=== PATIENT | male | born 1960 | race African-American/Black ===

== ENCOUNTER 2017-11-06 19:25 | Inpatient (IN) | payer OTHER ==
[2017-11-06 19:59] VITALS: BMI 30.1
--- NOTE | 2017-11-06 20:27 | HP ---
COWS - Scale Resting Pulse: 0= [place] 80 or Below Sweatin=Flushed/Facial Moisture Restless Observation: 1= Difficult to Sit Still Pupil Size: 1= Pupils >than Normal Bone or Joint Aches: 1= Mild Discomfort Runny Nose/ Eye Tearin= Runny Nose/Eyes GI Upset > 30mins: 2= Nausea/Diarrhea Tremor Observation: 1= Tremor [place], Not Seen Yawning Observation: 4= Several Times/Minute Anxiety or Irritability: 2=Irritable/Anxious Goose Flesh Skin: 0=Smooth Skin COWS Score: 16 CIWA Score - CIWA Score Nausea/Vomitin Muscle Tremors: 2 Anxiety: 3 Agitation: 2 Paroxysmal Sweats: 3 Orientation: 0-Oriented Tacttile Disturbances: 0-None Auditory Disturbances: 0-None Visual Disturbances: 2-Mild Sensitivity Headache: 0-None Present CIWA-Ar Total Score: 14 Admission ROS S - HPI Chief Complaint: heroin and alcohol withdrawal symptoms Allergies/Adverse Reactions: Allergies Allergy/AdvReac Type Severity Reaction Status Date / Time No Known Allergies Allergy Verified 02/28/16 13:56 History of Present Illness: 57 yo male with hx of nicotine, IV heroin, crack / cocaine dependence is here seeking detox. Denies suicidal / homicidal ideation. Last detox [facility] 03/27/16 - 03/04/16. Exam Limitations: No Limitations - Ebola screening Have you traveled outside of the country in the last 21 days: No Have you had contact with anyone from an Ebola affected area: No Have you been sick,other than usual withdrawal symptoms: No Do you have a fever: No - Review of Systems Constitutional: Chills, Diaphoresis, Loss of Appetite, Changes in sleep, Weakness EENT: reports: No Symptoms Reported Respiratory: reports: No Symptoms reported GI: reports: Constipated (last BM yesterday), Nausea, Poor Appetite, Poor Fluid Intake : reports: No Symptoms Reported Musculoskeletal: reports: Back Pain, Joint Pain Integumentary: reports: No Symptoms Reported Neuro: reports: Weakness Hematology: reports: No Symptoms Reported Psychiatric: reports: Orientated x3, Agitated Other Systems: Reviewed and Negative Patient History - Patient Medical History Hx Anemia: No Hx Asthma: No Hx Chronic Obstructive Pulmonary Disease (COPD): No Hx Cancer: No Hx Cardiac Disorders: No Hx Congestive Heart Failure: No Hx Hypertension: No Hx Hypercholesterolemia: No Hx Pacemaker: No HX Cerebrovascular Accident: No Hx Seizures: No Hx Dementia: No Hx Diabetes: No Hx Gastrointestinal Disorders: No Hx Liver Disease: No Hx Genitourinary Disorders: No Hx Sexually Transmitted Disorders: No Hx Renal Disease (ESRD): No Hx Thyroid Disease: No Hx Human Immunodeficiency Virus (HIV): No (declines testing today ) Hx Hepatitis C: No Hx Depression: Yes Hx Suicide Attempt: No Hx Bipolar Disorder: No Hx Schizophrenia: No - Patient Surgical History Past Surgical History: Yes Hx Abdominal Surgery: Yes (hernia repair umbilical ) - PPD History Previous Implant?: No Documented Results: Negative w/o proof PPD to be Administered?: Yes - Smoking Cessation Smoking history: Current every day smoker Have you smoked in the past 12 months: Yes Aproximately how many cigarettes per day: 20 Cigars Per Day: 0 Hx Chewing Tobacco Use: No Initiated information on smoking cessation: Yes 'Breaking Loose' booklet given: 11/06/17 - Substance & Tx. History Hx Alcohol Use: Yes Hx Substance Use: Yes Substance Use Type: Alcohol, Cocaine, Heroin Hx Substance Use Treatment: Yes ([facility] 02/28/16 -03/04/16) - Substances Abused Heroin Route: Injection Frequency: Daily Amount used: 25 Age of first use: 17 Date of Last Use: 11/06/17 Alcohol Route: Oral Frequency: 3-6 times per week Amount used: 1 pint vodka Age of first use: 17 Date of Last Use: 11/06/17 Crack Route: Smoking Frequency: Daily Amount used: 1 gram Age of first use: 17 Date of Last Use: 11/06/17 Family Disease History - Family Disease History Family History: Unable to Obtain Admission Physical Exam [facility] - Vital Signs Vital Signs: Vital Signs - 24 hr 11/06/17 19:57 Temperature 97.2 F L Pulse Rate 62 Respiratory 21 Rate Blood Pressure 155/77 - Physical General Appearance: Yes: Disheveled, Moderate Distress, Irritable, Anxious HEENTM: Yes: EOMI, Hearing grossly Normal, Normal ENT Inspection, Normocephalic , Normal Voice, TOM, Pharynx Normal, Tm's normal Respiratory: Yes: Chest Non-Tender, Lungs Clear, Normal Breath Sounds, No Respiratory Distress, No Accessory Muscle Use Neck: Yes: No masses,lesions,Nodules, Trachea in good position Breast: Yes: Breast Exam Deferred Cardiology: Yes: Within Normal Limits Abdominal: Yes: Normal Bowel Sounds, Non Tender, Soft, Protuberent Genitourinary: Yes: Within Normal Limits Musculoskeletal: Yes: full range of Motion, Gait Steady, Pelvis Stable, Back pain, Muscle Pain (left lower extremity) Extremities: Yes: Normal Capillary Refill, Normal Inspection, Normal Range of Motion, Non-Tender Neurological: Yes: hall cleaner II-XII NML intact, Motor Strength 5/5, Depressed Affect Integumentary: Yes: Normal Color, Warm, Diaphoresis Lymphatic: Yes: Within Normal Limits - Diagnostic (1) Alcohol dependence with withdrawal Current Visit: Yes Status: Acute Qualifiers: Complication of substance-induced condition: uncomplicated Qualified Code(s ): F10.230 - Alcohol dependence with withdrawal, uncomplicated (2) Nausea and vomiting Current Visit: Yes Status: Acute Qualifiers: Vomiting Intractability: unspecified (3) Cocaine dependence, uncomplicated Current Visit: Yes Status: Acute (4) Nicotine dependence Current Visit: Yes Status: Chronic Qualifiers: Nicotine product type: cigarettes Substance use status: uncomplicated Qualified Code(s): F17.210 - Nicotine dependence, cigarettes, uncomplicated (5) Opioid dependence with withdrawal Current Visit: Yes Status: Acute (6) IV drug user Current Visit: Yes Status: Acute (7) Elevated blood pressure reading in office without diagnosis of hypertension Current Visit: Yes Status: Acute Cleared for Admission [facility] - Detox or Rehab [facility] Level of Care: Medically Managed Detox Regimen/Protocol: Methadone/Librium [facility] Breath Alcohol Content Breath Alcohol Content: 0.027 Urine Drug Screen - Results Drug Screen Negative: No Urine Drug Screen Results: SHYLA-Cocaine, OPI-Opiates
[2017-11-06] MEDS ORDERED: hydrOXYzine PAMOATE 50 MG CAPSULE (FP) PO PRN (20:33)
[2017-11-06] MEDS ORDERED: guaiFENesin/D-METHORPHAN HB 10 ML UNIT-DOSE CUPS PO PRN (20:33)
[2017-11-06] MEDS ORDERED: MAGNESIUM CITRATE 300 ML BOTTLE PO PRN (20:33)
[2017-11-06] MEDS ORDERED: ACETAMINOPHEN 325 MG TABLET (FP) PO PRN (20:33)
[2017-11-06] MEDS ORDERED: P-EPHED 60MG/TRIPROLIDI 2.5MG TABLET PO PRN (20:33)
[2017-11-06] MEDS ORDERED: MAGNESIUM HYDROX 2400MG/30ML ORAL SUSPENSION 30 ML CUP PO PRN (20:33)
[2017-11-06] MEDS ORDERED: NICOTINE POLACRILEX 2 MG GUM BC PRN (20:33)
[2017-11-06] MEDS ORDERED: chlordiazePOXIDE HCL 25 MG CAPSULE PO PRN (20:33)
[2017-11-06] MEDS ORDERED: IBUPROFEN 400 MG TABLET (FP) PO PRN (20:33)
[2017-11-06] MEDS ORDERED: MENTHOL/PHENOL 1 EACH UD MM PRN (20:33)
[2017-11-06] MEDS ORDERED: MAG HYDROX/AL HYDROX/SIMETH 30 ML UNIT-DOSE CUP PO PRN (20:33)
[2017-11-06] MEDS ORDERED: LOPERAMIDE HCL 2 MG CAPSULE PO PRN (20:33)
[2017-11-06] MEDS ORDERED: ONDANSETRON *ODT* 4 MG TABLET SL PRN (20:44)
[2017-11-06] MEDS ORDERED: METHADONE HCL 10 MG TABLET (FOR DETOX USE ONLY) PO ONE ×2 (21:30→23:00)
[2017-11-06] MEDS ORDERED: chlordiazePOXIDE HCL 25 MG CAPSULE PO ONE (21:30)
[2017-11-06] MEDS: THIAMINE HCL 100 MG TABLET (FP) PO SCH (21:53)
[2017-11-06] MEDS: chlordiazePOXIDE HCL 25 MG CAPSULE PO SCH (23:17)
[2017-11-07] MEDS: chlordiazePOXIDE HCL 25 MG CAPSULE PO SCH ×4 (06:42→22:38)
[2017-11-07] MEDS ORDERED: TRIMETHOBENZAMIDE HCL 200MG/2ML INJ IM ONE (08:40)
[2017-11-07] MEDS ORDERED: METHADONE DETOX 10 MG/1 ML [20ML VIAL] IM ONE (09:17)
--- NOTE | 2017-11-07 09:39 | EKG ---
Test Reason : Blood Pressure : / mmHG Vent. Rate : 062 BPM Atrial Rate : 062 BPM P-R Int : 190 ms QRS Dur : 084 ms QT Int : 428 ms P-R-T Axes : 051 047 024 degrees QTc Int : 434 ms NORMAL SINUS RHYTHM POSSIBLE LEFT ATRIAL ENLARGEMENT NONSPECIFIC T WAVE ABNORMALITY ABNORMAL ECG NO PREVIOUS ECGS AVAILABLE Confirmed by BECK BRYAN MD ([id number]) on 11/07/2017 9:38:51 AM Referred By: Confirmed By:BECK BRYAN MD
[2017-11-07] MEDS ORDERED: METHADONE HCL 10 MG TABLET (FOR DETOX USE ONLY) PO SCH (10:00)
[2017-11-07 10:03] LABS: HEMATOCRIT 38.1 % (35.4-49); HEMOGLOBIN 12.3 GM/dL (11.7-16.9); MCHC 32.2 g/dl (32.0-35.9); MEAN CELL VOLUME 74.5 fl (80-96); MEAN PLT VOLUME 8.2 fl (7.5-11.1); PLATELET COUNT 316 K/MM3 (134-434); RBC 5.12 M/mm3 (4.00-5.60); RDW 16.1 % (11.9-15.9); WHITE BLOOD COUNT 7.1 K/mm3 (4.0-10.0)
[2017-11-07 10:17] LABS: CHLORIDE 104 mmol/L (98-107); POTASSIUM 4.5 mmol/L (3.5-5.1); SODIUM 137 mmol/L (136-145)
[2017-11-07] MEDS: PRENATAL VITAMINS W/ FOLIC ACID TABLET (FP) PO SCH (10:41)
[2017-11-07] MEDS: NICOTINE 14 MG/24 HOURS TOPICAL PATCH TD SCH (10:41)
--- NOTE | 2017-11-07 11:17 | PN ---
[facility] CIWA - CIWA Score Nausea/Vomitin-No Nausea/No Vomiting Muscle Tremors: 4-Moderate,w/Arms Extend Anxiety: 4-Mod. Anxious/Guarded Agitation: 4-Moderately Restless Paroxysmal Sweats: 1-Minimal Palms Moist Orientation: 0-Oriented Tacttile Disturbances: 3-Moderate Itch/Numb/Burn Auditory Disturbances: 0-None Visual Disturbances: 0-None Headache: 0-None Present CIWA-Ar Total Score: 16 S COWS - Scale Resting Pulse: 0= [place] 80 or Below Sweatin= Chills/Flushing Restless Observation: 3= Extraneous Movement Pupil Size: 2= Moderately Dilated Bone or Joint Aches: 4=Acute Joint/Muscle Pain Runny Nose/ Eye Tearin= Nasal Congestion GI Upset > 30mins: 5=Frequent Vomit/Diarrhea Tremor Observation of Outstretched Hands: 1= Tremor [place], Not Seen Yawning Observation: 1= 1-2x During Session Anxiety or Irritability: 2=Irritable/Anxious Goose Flesh Skin: 0=Smooth Skin COWS Score: 20 [facility] Progress Note (SOAP) Subjective: SEVERE WITHDRAWAL SX-NAUSEA,VOMITING-YELLOW TINGED LIQUID,WRETCHING,IRRITABILITY , HOT AND COLD CHILLS,ANXIETY,INTERMITTENT SLEEP. Objective: 11/07/17 11:15 Vital Signs 11/07/17 11/07/17 11/07/17 03:30 06:43 09:26 Temperature 97.4 F L 96.7 F L Pulse Rate 52 L 48 L Respiratory 18 20 18 Rate Blood Pressure 155/75 157/81 Laboratory Tests 11/07/17 06:40 WBC 7.1 RBC 5.12 Hgb 12.3 Hct 38.1 MCV 74.5 L MCH 24.0 L MCHC 32.2 RDW 16.1 H Plt Count 316 MPV 8.2 OTHER LABS PENDING Assessment: 11/07/17 11:15 WITHDRAWAL SX Plan: CONTINUE DETOX TIGAN 200 MG IM X 1 GIVEN METHADONE 10 MG IM X 1 ORDERED.
[2017-11-07] MEDS ORDERED: cloNIDine HCL 0.1 MG TABLET PO ONE (11:22)
[2017-11-07 11:23] LABS: ALBUMIN 3.5 g/dl (3.4-5.0); ALK PHOS 98 U/L (45-117); ANION GAP 12 (8-16); BILIRUBIN,TOTAL 0.8 mg/dL (0.2-1.0); BLOOD UREA NITROGEN 11 mg/dL (7-18); CALCIUM 9.2 mg/dL (8.5-10.1); CO2 21 mmol/L (21-32); GLUCOSE,RANDOM 106 mg/dL (74-106); SGOT/AST 18 U/L (15-37); SGPT/ALT 16 U/L (12-78); TOT PROT 8.5 g/dl (6.4-8.2)
--- NOTE | 2017-11-07 15:10 | CONSULT ---
[facility] Psychiatric Consult - Data Date of interview: 11/07/17 Admission source: [facility] Identifying data: Readmission to [facility] for this 57 y/o AA male seeking detox treatment on for heroin and cocaine (crack) dependence.Patient is single,a father of five,domiciled,unemployed and supported on SSI benefits. Substance Abuse History: Confirmed by patient in this interview.Details in current [facility] report as follows : Smoking history: Current every day smoker. Have you smoked in the past 12 months: Yes. Aproximately how many cigarettes per day: 20. Cigars Per Day: 0. Hx Chewing Tobacco Use: No. Initiated information on smoking cessation: Yes. 'Breaking Loose' booklet given: . - Substance & Tx. History. Hx Alcohol Use: Yes. Hx Substance Use: Yes. Substance Use Type: Alcohol, Cocaine, Heroin. Hx Substance Use Treatment: Yes ( [facility] 02/28/16 -03/04/16). - Substances Abused. Heroin. Route: Injection. Frequency: Daily. Amount used: 25. Age of first use: 17. Date of Last Use: . Alcohol. Route: Oral. Frequency: 3-6 times per week. Amount used : 1 pint vodka. Age of first use: 17. Date of Last Use: 11/06/17. Crack. Route: Smoking. Frequency: Daily. Amount used: 1 gram. Age of first use: 17. Date of Last Use: 11/06/17 Medical History: Remarkable for a history of positive PPD and umbilical herniorraphy. Psychiatric History: Patient admits to a history of multiple psychiatric hospitalizations.Known to [facility].Diagnosed with Bipolar Disorder as per self-report.Lost to psychiatric follow up.Mr Gonzalez states that he has not taken psychotropic medications " for a while " or seen a psychiatrist for many months.Patient denies history of suicide attempts. Physical/Sexual Abuse/Trauma History: No information. Additional Comment: Urine Drug Screen Results: SHYLA-Cocaine, OPI-Opiates.Noted. Mental Status Exam - Mental Status Exam Alert and Oriented to: Time, Place, Person Cognitive Function: Good Patient Appearance: Unkempt, Disheveled Mood: Hostile, Nervous, Withdrawn, Irritable Affect: Mood Congruent Patient Behavior: Fatigued, Uncooperative Speech Pattern: Clear Voice Loudness: Normal Thought Process: Goal Oriented Thought Disorder: Not Present Hallucinations: Denies Suicidal Ideation: Denies Homicidal Ideation: Denies Insight/Judgement: Poor Sleep: Well Appetite: Fair Muscle strength/Tone: Normal Gait/Station: Normal Psychiatric Findings - Problem List ([place] 1, 2,3) (1) Opioid dependence with withdrawal Current Visit: Yes Status: Acute (2) Alcohol dependence with withdrawal Current Visit: Yes Status: Acute Qualifiers: Complication of substance-induced condition: uncomplicated Qualified Code(s ): F10.230 - Alcohol dependence with withdrawal, uncomplicated (3) Cocaine dependence, uncomplicated Current Visit: Yes Status: Acute (4) Nicotine dependence Current Visit: Yes Status: Acute Qualifiers: Nicotine product type: cigarettes Substance use status: in withdrawal Qualified Code(s): F17.213 - Nicotine dependence, cigarettes, with withdrawal (5) Substance induced mood disorder Current Visit: Yes Status: Acute - Initial Treatment Plan Initial Treatment Plan: Psychoeducation.Sleep hygiene.Detoxification.Observation.
[2017-11-07] MEDS: THIAMINE HCL 100 MG TABLET (FP) PO SCH (22:37)
[2017-11-07] MEDS: cloNIDine HCL 0.1 MG TABLET PO SCH (22:38)
[2017-11-08] MEDS: chlordiazePOXIDE HCL 25 MG CAPSULE PO SCH ×3 (05:31→18:00)
[2017-11-08] MEDS ORDERED: TRIMETHOBENZAMIDE HCL 200MG/2ML INJ IM ONE (09:52)
[2017-11-08] MEDS ORDERED: METHADONE DETOX 10 MG/1 ML [20ML VIAL] IM ONE (10:00)
[2017-11-08] MEDS ORDERED: METHADONE HCL 5 MG TABLET (FOR DETOX USE ONLY) PO SCH (10:00)
--- NOTE | 2017-11-08 10:32 | PN ---
S Progress Note (SOAP) Subjective: PT IS A 57 Y/O AA/MALE WHO WAS ADMITTED TO DETOX FOR HEROIN AND ALCOHOL SINCE 05/14 WITH ACUTE WITHDRAWAL SX. PT WAS SEEN THIS MORNING ON ROUNDS IN BED. STILL C/O ABDOMINAL PAIN,UNABLE TO EAT OR DRINK EXCEPT [place], UNRELENTING NAUSEA AND VOMITING X 48 HOURS, WEAKNESS. Objective: 11/08/17 10:32 Vital Signs - 24 hr 11/07/17 11/07/17 11/07/17 14:03 17:07 21:22 Temperature 98.2 F 97.8 F 100.1 F H Pulse Rate 42 L 56 L 51 L Respiratory 18 18 20 Rate Blood Pressure 136/71 144/71 162/83 11/08/17 11/08/17 00:44 09:23 Temperature 97.9 F Pulse Rate 49 L Respiratory 18 18 Rate Blood Pressure 139/74 Laboratory Last Values WBC 7.1 K/mm3 (4.0-10.0) 11/07/17 06:40 RBC 5.12 M/mm3 (4.00-5.60) 11/07/17 06:40 Hgb 12.3 GM/dL (11.7-16.9) 11/07/17 06:40 Hct 38.1 % (35.4-49) 11/07/17 06:40 MCV 74.5 fl (80-96) L 11/07/17 06:40 MCH 24.0 pg (25.7-33.7) L 11/07/17 06:40 MCHC 32.2 g/dl (32.0-35.9) 11/07/17 06:40 RDW 16.1 % (11.9-15.9) H 11/07/17 06:40 Plt Count 316 K/MM3 (134-434) 11/07/17 06:40 MPV 8.2 fl (7.5-11.1) 11/07/17 06:40 Sodium 137 mmol/L (136-145) 11/07/17 06:40 Potassium 4.5 mmol/L (3.5-5.1) 11/07/17 06:40 Chloride 104 mmol/L (98-107) 11/07/17 06:40 Carbon Dioxide 21 mmol/L (21-32) D 11/07/17 06:40 Anion Gap 12 (8-16) 11/07/17 06:40 BUN 11 mg/dL (7-18) D 11/07/17 06:40 Creatinine 1.0 mg/dL (0.7-1.3) 11/07/17 06:40 Creat Clearance w eGFR > 60 (>60) 11/07/17 06:40 Random Glucose 106 mg/dL (74-106) D 11/07/17 06:40 Calcium 9.2 mg/dL (8.5-10.1) 11/07/17 06:40 Total Bilirubin 0.8 mg/dL (0.2-1.0) D 11/07/17 06:40 AST 18 U/L (15-37) D 11/07/17 06:40 ALT 16 U/L (12-78) 11/07/17 06:40 Alkaline Phosphatase 98 U/L (45-117) 11/07/17 06:40 Total Protein 8.5 g/dl (6.4-8.2) H 11/07/17 06:40 Albumin 3.5 g/dl (3.4-5.0) 11/07/17 06:40 RPR Titer Nonreactive (NONREACTIVE) 11/07/17 06:40 PULSE OX: 95% ROOM AIR ABDOMINAL EXAM:BS PRESENT, HYPOACTIVE. SOFT TO PALPATE, NOT DISTENDED. PAIN ON PALPATION AT EPIGASTRIC REGION Assessment: 11/08/17 10:33 WITHDRAWAL SX NAUSEA/VOMITING WITH ABDOMINAL PAIN Plan: CONTINUE DETOX ZANTAC 150 MG PO BID PO FLUIDS TOLERATED TRANSFER TO ER FOR FURTHER EVALUATION AND TREATMENT IF NEEDED.
[2017-11-08] MEDS: PRENATAL VITAMINS W/ FOLIC ACID TABLET (FP) PO SCH (11:12)
[2017-11-08] MEDS: cloNIDine HCL 0.1 MG TABLET PO SCH ×2 (11:12→22:31)
[2017-11-08] MEDS: NICOTINE 14 MG/24 HOURS TOPICAL PATCH TD SCH (11:13)
[2017-11-08] MEDS: RANITIDINE HCL 150 MG TABLET (FP) PO SCH ×2 (11:13→22:31)
--- NOTE | 2017-11-08 17:52 | PN ---
[facility] Progress Note Note: pt was sent to ED this morning for uncontrolled N/V and generalized achy body. Dish Room Worker received call from Dr. Radha Camarena with report that pt is cleared to return back to [facility] to complete his detox. Pt received ekg which shows he has a prolonged QT and MD is requesting no anti- nausea medication to be ordered for this pt. Dr. Camarena will also refer pt to see a grinder operator tool as a follow up after he completes detox. Pt also received a 1x dose clonidine 0.1mg patch for hypertension, Dr. Camarena states it resolved after patch was placed.
[2017-11-08] MEDS: chlordiazePOXIDE 5 MG CAPSULE PO SCH (22:31)
[2017-11-08] MEDS: THIAMINE HCL 100 MG TABLET (FP) PO SCH (22:31)
[2017-11-09] MEDS: chlordiazePOXIDE 5 MG CAPSULE PO SCH ×3 (06:40→17:27)
[2017-11-09] MEDS ORDERED: METHADONE HCL 5 MG TABLET (FOR DETOX USE ONLY) PO SCH (10:00)
[2017-11-09] MEDS: NICOTINE 14 MG/24 HOURS TOPICAL PATCH TD SCH (10:54)
[2017-11-09] MEDS: cloNIDine HCL 0.1 MG TABLET PO SCH ×2 (10:54→22:45)
[2017-11-09] MEDS: RANITIDINE HCL 150 MG TABLET (FP) PO SCH ×2 (10:54→22:46)
[2017-11-09] MEDS: PRENATAL VITAMINS W/ FOLIC ACID TABLET (FP) PO SCH (10:54)
--- NOTE | 2017-11-09 14:51 | PN ---
S CIWA - CIWA Score Nausea/Vomitin Muscle Tremors: 2 Anxiety: 4-Mod. Anxious/Guarded Agitation: 1-Slight > Activity Paroxysmal Sweats: No Perspiration Orientation: 0-Oriented Tacttile Disturbances: 2-Mild Itch/Numbness/Burn Auditory Disturbances: 1-Very Mild Visual Disturbances: 2-Mild Sensitivity Headache: 0-None Present CIWA-Ar Total Score: 14 [facility] COWS - Scale Resting Pulse: 0= [place] 80 or Below Sweatin= No chills or Flushing Restless Observation: 1= Difficult to Sit Still Pupil Size: 0= Normal to Room Light Bone or Joint Aches: 0= None Runny Nose/ Eye Tearin= Nasal Congestion GI Upset > 30mins: 2= Nausea/Diarrhea Tremor Observation of Outstretched Hands: 2= Slight Tremor Visible Yawning Observation: 2= >3x During Session Anxiety or Irritability: 2=Irritable/Anxious Goose Flesh Skin: 3=Piloerection COWS Score: 13 [facility] Progress Note (SOAP) Subjective: Tremors, Fatigue, Nausea, Anxious. Objective: PATIENT A & O X 3. NO ACUTE DISTRESS. 11/09/17 14:49 Vital Signs Temperature 99 F 11/09/17 14:19 Pulse Rate 56 L 11/09/17 14:19 Respiratory Rate 16 11/09/17 14:19 Blood Pressure 121/68 11/09/17 14:19 O2 Sat by Pulse Oximetry (%) Laboratory Tests 11/07/17 11/07/17 11/07/17 06:40 06:40 06:40 WBC 7.1 RBC 5.12 Hgb 12.3 Hct 38.1 MCV 74.5 L MCH 24.0 L MCHC 32.2 RDW 16.1 H Plt Count 316 MPV 8.2 Sodium 137 Potassium 4.5 Chloride 104 Carbon Dioxide 21 D Anion Gap 12 BUN 11 D Creatinine 1.0 Creat Clearance w eGFR > 60 Random Glucose 106 D Calcium 9.2 Total Bilirubin 0.8 D AST 18 D ALT 16 Alkaline Phosphatase 98 Total Protein 8.5 H Albumin 3.5 RPR Titer Nonreactive LABS NOTED. UA RESULTS PENDING. 11/09/17 14:50 Assessment: 11/09/17 14:50 WITHDRAWAL SYMPTOMS. Plan: CONTINUE DETOX.
[2017-11-09] MEDS: THIAMINE HCL 100 MG TABLET (FP) PO SCH (22:45)
[2017-11-09] MEDS: chlordiazePOXIDE HCL 10 MG CAPSULE PO SCH (22:46)
[2017-11-10] MEDS: chlordiazePOXIDE HCL 10 MG CAPSULE PO SCH ×3 (06:44→17:42)
[2017-11-10] MEDS ORDERED: METHADONE HCL 10 MG TABLET (FOR DETOX USE ONLY) PO SCH (10:00)
[2017-11-10] MEDS: cloNIDine HCL 0.1 MG TABLET PO SCH ×2 (10:58→22:25)
[2017-11-10] MEDS: PRENATAL VITAMINS W/ FOLIC ACID TABLET (FP) PO SCH (10:58)
[2017-11-10] MEDS: RANITIDINE HCL 150 MG TABLET (FP) PO SCH ×2 (10:58→22:32)
[2017-11-10] MEDS: NICOTINE 14 MG/24 HOURS TOPICAL PATCH TD SCH (10:59)
--- NOTE | 2017-11-10 16:19 | PN ---
[facility] Progress Note (SOAP) Subjective: Nausea (Improving), Fatigue, Interrupted Sleep, Body Aches. Objective: PATIENT A & O X 3. NO ACUTE DISTRESS. 11/10/17 16:18 Vital Signs Temperature 98.2 F 11/10/17 13:29 Pulse Rate 67 11/10/17 13:29 Respiratory Rate 18 11/10/17 13:29 Blood Pressure 102/71 11/10/17 13:29 O2 Sat by Pulse Oximetry (%) Laboratory Tests 11/07/17 11/07/17 11/07/17 06:40 06:40 06:40 WBC 7.1 RBC 5.12 Hgb 12.3 Hct 38.1 MCV 74.5 L MCH 24.0 L MCHC 32.2 RDW 16.1 H Plt Count 316 MPV 8.2 Sodium 137 Potassium 4.5 Chloride 104 Carbon Dioxide 21 D Anion Gap 12 BUN 11 D Creatinine 1.0 Creat Clearance w eGFR > 60 Random Glucose 106 D Calcium 9.2 Total Bilirubin 0.8 D AST 18 D ALT 16 Alkaline Phosphatase 98 Total Protein 8.5 H Albumin 3.5 RPR Titer Nonreactive LABS NOTED. Assessment: 11/10/17 16:18 WITHDRAWAL SYMPTOMS. Plan: CONTINUE DETOX. INCREASE DAILY PO FLUID INTAKE. ENCOURAGE AMBULATION.
[2017-11-10] MEDS: MELATONIN 5 MG TABLETS PO PRN (22:32)
[2017-11-10] MEDS: THIAMINE HCL 100 MG TABLET (FP) PO SCH (22:32)
[2017-11-11] MEDS ORDERED: METHADONE HCL 5 MG TABLET (FOR DETOX USE ONLY) PO SCH (06:00)
[2017-11-11] MEDS: RANITIDINE HCL 150 MG TABLET (FP) PO SCH ×2 (10:34→21:35)
[2017-11-11] MEDS: NICOTINE 14 MG/24 HOURS TOPICAL PATCH TD SCH (10:34)
[2017-11-11] MEDS: PRENATAL VITAMINS W/ FOLIC ACID TABLET (FP) PO SCH (10:34)
[2017-11-11] MEDS: cloNIDine HCL 0.1 MG TABLET PO SCH ×2 (10:35→21:35)
--- NOTE | 2017-11-11 11:24 | PN ---
S Progress Note Note: body aches, interrupted sleep, vertigo, denies SOB , CP, paresthesia Vital Signs Temperature 97.1 F L 11/11/17 09:12 Pulse Rate 73 11/11/17 09:12 Respiratory Rate 18 11/11/17 09:12 Blood Pressure 84/53 11/11/17 09:12 O2 Sat by Pulse Oximetry (%) Laboratory Last Values WBC 7.1 K/mm3 (4.0-10.0) 11/07/17 06:40 RBC 5.12 M/mm3 (4.00-5.60) 11/07/17 06:40 Hgb 12.3 GM/dL (11.7-16.9) 11/07/17 06:40 Hct 38.1 % (35.4-49) 11/07/17 06:40 MCV 74.5 fl (80-96) L 11/07/17 06:40 MCH 24.0 pg (25.7-33.7) L 11/07/17 06:40 MCHC 32.2 g/dl (32.0-35.9) 11/07/17 06:40 RDW 16.1 % (11.9-15.9) H 11/07/17 06:40 Plt Count 316 K/MM3 (134-434) 11/07/17 06:40 MPV 8.2 fl (7.5-11.1) 11/07/17 06:40 Sodium 137 mmol/L (136-145) 11/07/17 06:40 Potassium 4.5 mmol/L (3.5-5.1) 11/07/17 06:40 Chloride 104 mmol/L (98-107) 11/07/17 06:40 Carbon Dioxide 21 mmol/L (21-32) D 11/07/17 06:40 Anion Gap 12 (8-16) 11/07/17 06:40 BUN 11 mg/dL (7-18) D 11/07/17 06:40 Creatinine 1.0 mg/dL (0.7-1.3) 11/07/17 06:40 Creat Clearance w eGFR > 60 (>60) 11/07/17 06:40 Random Glucose 106 mg/dL (74-106) D 11/07/17 06:40 Calcium 9.2 mg/dL (8.5-10.1) 11/07/17 06:40 Total Bilirubin 0.8 mg/dL (0.2-1.0) D 11/07/17 06:40 AST 18 U/L (15-37) D 11/07/17 06:40 ALT 16 U/L (12-78) 11/07/17 06:40 Alkaline Phosphatase 98 U/L (45-117) 11/07/17 06:40 Total Protein 8.5 g/dl (6.4-8.2) H 11/07/17 06:40 Albumin 3.5 g/dl (3.4-5.0) 11/07/17 06:40 RPR Titer Nonreactive (NONREACTIVE) 11/07/17 06:40 withdrawal sx Plan: fall precautions increase fluids continue detox Reviewed hospital d/c recommendations to follow up with mail handler sorter upon d/c, patient verbalizes understanding. continue to monitor
[2017-11-11] MEDS: MELATONIN 5 MG TABLETS PO PRN (21:35)
[2017-11-11] MEDS: THIAMINE HCL 100 MG TABLET (FP) PO SCH (21:35)
[2017-11-12 09:11] VITALS: BP 82/55; PULSE 55; TEMP 97.3
[2017-11-12] MEDS: RANITIDINE HCL 150 MG TABLET (FP) PO SCH (10:16)
[2017-11-12] MEDS: NICOTINE 14 MG/24 HOURS TOPICAL PATCH TD SCH (10:16)
[2017-11-12] MEDS: cloNIDine HCL 0.1 MG TABLET PO SCH (10:16)
[2017-11-12] MEDS: PRENATAL VITAMINS W/ FOLIC ACID TABLET (FP) PO SCH (10:16)
--- NOTE | 2017-11-12 11:28 | PN ---
S Progress Note (SOAP) Subjective: Denies any complaint Objective: 11/12/17 11:25 A & O x 3 Ambulates steadily with a cane Denies any complaints Vital Signs Temperature 97.3 F L 11/12/17 09:10 Pulse Rate 55 L 11/12/17 09:10 Respiratory Rate 18 11/12/17 09:10 Blood Pressure 82/55 11/12/17 09:10 O2 Sat by Pulse Oximetry (%) Repeat Bp - 97/66, HR - 66bpm Denies dizziness, headache, nausea, chest pain/discomfort nor any symptoms 11/12/17 11:28 Assessment: 11/12/17 11:27 Detox successfully completed Plan: for d/c
--- NOTE | 2017-11-12 11:29 | DS ---
[facility] Detox Discharge Summary Admission Date: 11/06/17 Discharge Date: 11/12/17 - History Additional Comments: Pt d/c to home Will do aftercare as an o/p in [place] where he lives Verbalized feeling better and relief of his symptoms during detox. Provided with a cane for easy and safe ambulation which he demonstrated to provider Denies any home meds Provided with metrocard - Physical Exam Results Vital Signs: Vital Signs Temperature 97.3 F L 11/12/17 09:10 Pulse Rate 55 L 11/12/17 09:10 Respiratory Rate 18 11/12/17 09:10 Blood Pressure 82/55 11/12/17 09:10 O2 Sat by Pulse Oximetry (%) Pertinent Admission Physical Exam Findings: withdrawal sx Nausea/vomiting - Treatment Hospital Course: Detox Protocol Followed, Detoxed Safely, Responded well, Discharged Condition Good Patient has Accepted a Rehab Referral to: O/P NA/AA meeting - Medication Discharge Medications: Ambulatory Orders NK [No Known Home Medication] 02/28/16 - Diagnosis (1) Alcohol dependence with withdrawal Current Visit: Yes Status: Acute Qualifiers: Complication of substance-induced condition: with unspecified complication Qualified Code(s): F10.239 - Alcohol dependence with withdrawal, unspecified (2) Cocaine dependence, uncomplicated Current Visit: Yes Status: Acute (3) IV drug user Current Visit: Yes Status: Acute (4) Nausea and vomiting Current Visit: Yes Status: Acute Qualifiers: Vomiting type: unspecified Vomiting Intractability: unspecified Qualified Code(s): R11.2 - Nausea with vomiting, unspecified (5) Nicotine dependence Current Visit: Yes Status: Chronic Qualifiers: Nicotine product type: cigarettes Substance use status: in withdrawal Qualified Code(s): F17.213 - Nicotine dependence, cigarettes, with withdrawal (6) Opioid dependence with withdrawal Current Visit: Yes Status: Acute (7) Substance induced mood disorder Current Visit: Yes Status: Chronic (8) Use of cane as ambulatory aid Current Visit: Yes Status: Acute - AMA Did Patient Leave Against Medical Advice: No
== END 2017-11-12 11:21 | disposition home or self-care (01) | DRG 897 ==
LOC: YASAS 19:25 → Y3N 20:51
PROVIDERS: ADMIT Surgery; ATTEND Surgery
PROC: HZ2ZZZZ Detoxification Services for Substance Abuse Treatment (ICD-10-PCS; principal; 2017-11-06)
DX: F19.230 Other psychoactive substance dependence with withdrawal, uncomplicated (principal); F14.20 Cocaine dependence, uncomplicated; F11.23 Opioid dependence with withdrawal; F10.230 Alcohol dependence with withdrawal, uncomplicated; F17.213 Nicotine dependence, cigarettes, with withdrawal; F19.24 Other psychoactive substance dependence with psychoactive substance-induced mood disorder; R03.0 Elevated blood-pressure reading, without diagnosis of hypertension; R11.2 Nausea with vomiting, unspecified; R10.9 Unspecified abdominal pain; R26.2 Difficulty in walking, not elsewhere classified; Z99.89 Dependence on other enabling machines and devices
CPT/HCPCS: 36415; 80053; 85027; 86593; 93005; 93010; J0735